=== PATIENT | male | born 1995 | race Asian ===

== ENCOUNTER 2020-09-16 09:52 | Emergency (ER) | payer OTHER ==
[~2020-09-16] VITALS: Ht 170.2 cm; Wt 78.5 kg
[2020-09-16 10:40] VITALS: BP 134/75; TEMP 97.5
== END 2020-09-16 10:40 | disposition home or self-care (01) ==
LOC: ED 09:52
DX: J01.80 Other acute sinusitis (principal)
CPT/HCPCS: 99281

== ENCOUNTER 2021-06-30 01:12 | Emergency (ER) | payer OTHER ==
[~2021-06-30] VITALS: Ht 170.2 cm; Wt 74.4 kg
[2021-06-30 02:26] VITALS: BP 173/83; TEMP 98.5
== END 2021-06-30 02:30 | disposition home or self-care (01) ==
LOC: ED 01:12
DX: T65.91XA Toxic effect of unspecified substance, accidental (unintentional), initial encounter (principal); T20.40XA Corrosion of unspecified degree of head, face, and neck, unspecified site, initial encounter; T21.41XA Corrosion of unspecified degree of chest wall, initial encounter; X58.XXXA Exposure to other specified factors, initial encounter; Y92.89 Other specified places as the place of occurrence of the external cause
CPT/HCPCS: 96372; 99283; J0690; J1885; J3410